=== PATIENT | female | born 1945 | race African-American/Black ===

== ENCOUNTER 2018-06-08 10:00 | Day surgery (SDC) | payer OTHER, BC ==
[2018-06-07 14:59] VITALS: BMI 30.3
--- NOTE | 2018-06-08 09:18 | HP ---
Satellite [facility] - Chief Complaint Chief Complaint: left hand pain/numbness - Past Medical History Allergies/Adverse Reactions: Allergies Allergy/AdvReac Type Severity Reaction Status Date / Time No Known Drug Allergies Allergy Verified 06/07/18 15:02 - Current Medications Current Medications: Home Medications Medication Instructions Recorded Hydrocodone/Acetaminophen 1 each PO Q6H #20 tablet MDD 4 06/08/18 [Hydrocodone-Acetamin 5-325 mg] Satellite Physical Exam - Physical Examination General Appearance: Well Nourished, Well Developed, Alert & Oriented x3 ENT: Clear Lung: Normal air movement Heart: Regular rate & rhythm Extremities: Other (left hand - + phalens, + tinels EMG + CTS) Neurological: Intact, Alert, Oriented Satellite Impression/Plan - Impression/Plan Impression: left cts Operative Procedure: left ctr Date to be Performed: 06/08/18
[2018-06-08] MEDS ORDERED: LIDOCAINE HCL 1%, 10 MG/ML (20ML VIAL) ONE (12:30)
[2018-06-08] MEDS ORDERED: BUPIVACAINE HCL/PF 0.5% (5MG/ML) 10 ML VIAL ONE (12:30)
[2018-06-08] MEDS ORDERED: MIDAZOLAM HCL 2 MG/2 ML SINGLE DOSE VIAL ONE (12:55)
[2018-06-08] MEDS ORDERED: PROPOFOL 20 ML ONE (12:55)
[2018-06-08] MEDS ORDERED: ceFAZolin SODIUM 1 GM VIAL IVPB ONE (13:00)
[2018-06-08] MEDS ORDERED: LIDOCAINE HCL 1%, 10 MG/ML (50 mL VIAL) IJ ONE (13:07)
[2018-06-08] MEDS ORDERED: BUPIVACAINE HCL/PF (5 MG/ML) 30 ML VIAL IJ ONE (13:07)
--- NOTE | 2018-06-08 13:40 | OP ---
Operative Note - Note: Operative Date: 06/08/18 Pre-Operative Diagnosis: left CTS Operation: left CTR Post-Operative Diagnosis: Same as Pre-op Surgeon: Chase Islas Anesthesiologist/COMMUNITY DEVELOPMENT TECHNICIAN: Flora Avina Anesthesia: Local, MAC Specimens Removed: tenosynovium Estimated Blood Loss (mls): 0 Drains, Volume Out (mls): 0 Blood Volume Replaced (mls): 0 Fluid Volume Replaced (mls): 500 Operative Report Dictated: Yes
[2018-06-08] MEDS ORDERED: ONDANSETRON 4 MG/2 ML VIAL IVPUSH PRN (14:24)
[2018-06-08] MEDS ORDERED: oxyCODONE HCL 5 MG TABLET PO PRN (14:24)
[2018-06-08] MEDS ORDERED: LACTATED RINGERS SOLUTION 1,000 ML IV SCH (14:30)
[2018-06-08 14:41] VITALS: BP 107/71; PULSE 67; TEMP 97.8
--- NOTE | 2018-06-09 11:29 | SPEC ---
DATE OF OPERATION: DATE OF DICTATION: 06/08/2018 PREOPERATIVE DIAGNOSIS: Left carpal tunnel syndrome. POSTOPERATIVE DIAGNOSIS: Left carpal tunnel syndrome. OPERATION: Left carpal tunnel release and tenosynovectomy. SURGEON: Chase Islas M.D. ASSISTANTS: None. ANESTHESIOLOGIST: MUNA Avina ANESTHESIA: MAC, local injection with 12 mL of 0.5% Marcaine and 1% Lidocaine mix. DRAINS: None. COMPLICATIONS: None. SPECIMENS: Tenosynovium, left wrist. BLOOD LOSS: None. BLOOD GIVEN: None. FLUID REPLACEMENT: 500 mL of PlasmaLyte. INDICATIONS: This patient is a 73-year-old female with a preoperative diagnosis of left carpal tunnel syndrome. After understanding the potential risks, complications, alternatives and benefits of surgery versus nonsurgical treatment, the patient elected to undergo this procedure. DESCRIPTION OF PROCEDURE: The patient was brought to the operating room, peripheral IV placed and intravenous sedation was given. One gram of intravenous Ancef was given. MAC anesthesia was induced. A tourniquet was applied to the left upper arm and the left upper extremity was prepped and draped in sterile fashion. The entire case was done under 3.8 loupe magnification. A marking pen was utilized to josh out a longitudinal incision in an already existing skin crease. Twenty mL of 0.5% Marcaine mixed with 1% Lidocaine was injected in and around the surgical incision. The left upper extremity was elevated, exsanguinated with an Esmarch bandage and the tourniquet inflated to 250 mmHg. A No. 15 scalpel blade was utilized to cut down through the skin. Subcutaneous hemostasis was achieved with the bipolar cautery. Dissection was done through the superficial palmar fascia. Self-retaining retractors were placed into the wound. Under direct visualization, the transverse carpal ligament was transected with a No. 15 scalpel blade, exposing the median nerve and the contents of the carpal tunnel. The distal and proximal extents of the release were completed with a Littler scissor and checked with irrigation and my small finger. They were seen to be complete. Limited dissection was done on the radial side of the median nerve and more extensive dissection was done on the ulnar side of the median nerve. The patients nerve was seen to be quite compressed by epineurium and therefore a limited epineurotomy was performed. A Ragnell retractor was used to gently retract the median nerve in a radial direction. The patient had a lot of tenosynovitis and therefore a tenosynovectomy was performed off all 9 flexor tendons. This was passed off the field as tenosynovium left wrist. The floor of the carpal tunnel was checked. There were no abnormal masses or ganglion cysts. The area was copiously irrigated and washed out and closure begun. Undyed 4-0 Vicryl was used to close the deep dermal layer. Final skin reapproximation was done with horizontal mattress 4-0 nylon sutures. The area was then washed and dried, covered with Xeroform, 4x4s, fluffs between the fingers, Webril and a 4-inch plaster roll was utilized to make a volar splint, which was then wrapped with Jesús and Coban. The tourniquet was taken down after a total tourniquet time of 16 minutes. There were no complications during the case. The patient tolerated the procedure well and was brought to the ambulatory recovery room in stable condition. Sasha [id number]
--- NOTE | 2018-06-10 17:24 | PATH ---
Surgical Pathology Report Patient Name: PETER ARCHIBALD [facility]. Rec. #: [id number] /Age/Gender: 1945 (Age: 73) / F Account: [id number] Location: [facility] SURGICAL Taken: 06/08/2018 Received: 06/09/2018 Reported: 06/10/2018 Physicians: Chase Islas M.D. Specimen(s) Received WRIST, LEFT, TENOSYNOVIUM Clinical History Carpal tunnel syndrome left Final Diagnosis WRIST, LEFT, TENOSYNOVIUM, CARPAL TUNNEL RELEASE: BENIGN FIBROCONNECTIVE TISSUE. Electronically Signed Lidia Dupont M.D. Gross Description Received in formalin labeled "tenosynovium left wrist," is a 2.0 x 1.6 x 0.3 cm aggregate of menendez-yellow portions of soft tissue, consistent with tenosynovium. The specimen is submitted in toto in one cassette. 06/09/201806/09/2018
== END 2018-06-08 14:45 | disposition home or self-care (01) ==
LOC: JASU-SURG 10:00
PROVIDERS: ATTEND Orthopaedic Surgery
PROC: 0LT60ZZ Resection of Left Lower Arm and Wrist Tendon, Open Approach (ICD-10-PCS; 2018-06-08)
PROC: 01N50ZZ Release Median Nerve, Open Approach (ICD-10-PCS; principal; 2018-06-08 11:30)
DX: G56.02 Carpal tunnel syndrome, left upper limb (principal); M65.9 Synovitis and tenosynovitis, unspecified
CPT/HCPCS: 88304-TC

== ENCOUNTER 2019-04-21 11:06 | Emergency (ER) | payer OTHER, BC ==
[2019-04-21] MEDS ORDERED: ONDANSETRON 4 MG/2 ML VIAL IVPUSH ONE (11:39)
[2019-04-21] MEDS ORDERED: SODIUM CHLORIDE 1,000 ML IV STA (11:39)
--- NOTE | 2019-04-21 11:39 | PDOC ---
History of Present Illness <Dolores Lerner - Last Filed: 04/21/19 12:49> - General History Source: Patient Exam Limitations: No Limitations <Jonna Najera - Last Filed: 04/21/19 14:41> - General Chief Complaint: Weakness Stated Complaint: WEKNESS Time Seen by Provider: 04/21/19 11:20 Past History <Dolores Lerner - Last Filed: 04/21/19 12:49> - Travel Traveled outside of the country in the last 30 days: No Close contact w/someone who was outside of country & ill: No - Past Medical History Anemia: No Asthma: No Cancer: No Cardiac Disorders: No CVA: Yes (CT scan showed mini stroke-pt unaware of same) COPD: No CHF: No Dementia: No Diabetes: No GI Disorders: No Disorders: No HTN: Yes Hypercholesterolemia: No Liver Disease: No Seizures: No Thyroid Disease: No - Surgical History Cholecystectomy: Yes - Psycho Social/Smoking Cessation Hx Smoking History: Never smoked Hx Alcohol Use: No Drug/Substance Use Hx: No Substance Use Type: None Hx Substance Use Treatment: No <Jonna Najera - Last Filed: 04/21/19 14:41> - Past Medical History Allergies/Adverse Reactions: Allergies Allergy/AdvReac Type Severity Reaction Status Date / Time No Known Drug Allergies Allergy Verified 06/07/18 15:02 Home Medications: Ambulatory Orders Alendronate Sodium 70 mg PO WEEKLY 06/08/18 Atacand 32 mg PO DAILY 06/08/18 Hydrocodone/Acetaminophen [Hydrocodone-Acetamin 5-325 mg] 1 - 2 tab PO TID PRN # 25 tablet MDD 6 06/08/18 Labetalol HCl 200 mg PO DAILY 06/08/18 Lipitor 10 mg PO DAILY 06/08/18 Nifedipine 90 mg PO DAILY 06/08/18 Ondansetron [Zofran Odt -] 4 mg SL TID #10 od.tablet 04/21/19 Oseltamivir Phosphate [Tamiflu] 75 mg PO BID #10 capsule 04/21/19 Review of Systems - Review of Systems Able to Perform ROS?: Yes Comments:: 04/21/19 14:35 CONSTITUTIONAL: Present: body aches Absent: Fever, diaphoresis, generalized weakness, malaise, loss of appetite HEENT: Present: rhinorrhea, nasal congestion. Absent: Throat pain, difficulty swallowing, mouth swelling, ear pain, eye pain, visual Changes CARDIOVASCULAR: Present: Lightheaded absent: chest pain, loss of consciousness, palpitations, irregular heart rate, peripheral edema RESPIRATORY: Present: Cough Absent: shortness of breath, dyspnea with exertion, orthopnea, wheezing, stridor, hemoptysis GASTROINTESTINAL: Present: Vomiting Absent: abdominal pain, abdominal distension, nausea, vomiting , diarrhea, constipation, melena, hematochezia SKIN: Absent: rash, itching, pallor NEUROLOGIC: Absent: headache, focal weakness or paresthesias, dizziness, unsteady gait, seizure, mental status changes, bladder or bowel incontinence Is the patient limited Icelandic proficient: No <Jonna Najera - Last Filed: 04/21/19 14:41> *Physical Exam - Vital Signs Last Vital Signs Temp Pulse Resp BP Pulse Ox 98.2 F 65 18 102/68 97 04/21/19 11:15 04/21/19 11:15 04/21/19 11:15 04/21/19 11:15 04/21/19 11:15 <Dolores Lerner - Last Filed: 04/21/19 12:49> - Physical Exam 04/21/19 14:36 GENERAL: Well developed, well nourished. Awake and alert. No acute distress. HEENT: Normocephalic, atraumatic. PERRLA, EOMI. No conjunctival pallor. Sclera are non- icteric. Moist mucous membranes. Oropharynx is clear. NECK: Supple. Full ROM. No lymphadenopathy. CARDIOVASCULAR: Regular rate and rhythm. No murmurs, rubs, or gallops. Distal pulses are 2+ and symmetric. PULMONARY: No evidence of respiratory distress. Lungs clear to auscultation bilaterally. No wheezing, rales or rhonchi. ABDOMINAL: Soft. Non-tender. Non-distended. No rebound or guarding. No organomegaly. Normoactive bowel sounds. MUSCULOSKELETAL Normal range of motion at all joints. No bony deformities or tenderness. No CVA tenderness. EXTREMITIES: No cyanosis. No clubbing. No edema. No calf tenderness. SKIN: Warm and dry. Normal capillary refill. No rashes. No jaundice. NEUROLOGICAL: Alert, awake, appropriate. Cranial nerves 2-12 intact. No deficits to light touch and temperature in face, upper extremities and lower extremities. No motor deficits in the in face, upper extremities and lower extremities. Normoreflexic in the upper and lower extremities. Normal speech. Toes are down- going bilaterally. Gait is normal without ataxia. PSYCHIATRIC: Cooperative. Good eye contact. Appropriate mood and affect. <Jonna Najera - Last Filed: 04/21/19 14:41> ED Treatment Course - LABORATORY CBC & Chemistry Diagram: 04/21/19 11:50 04/21/19 11:50 - ADDITIONAL ORDERS Additional order review: 04/21/19 11:50 RBC 4.21 MCV 95.2 MCHC 33.2 RDW 13.6 MPV 7.8 Neutrophils % 74.2 Lymphocytes % 10.2 Monocytes % 10.5 H Eosinophils % 4.2 Basophils % 0.9 - Medications Given in the ED: ED Medications Discontinued Medications Generic Name Dose Route Start Last Admin Trade Name Freq PRN Reason Stop Dose Admin Sodium Chloride 1,000 mls @ 1,000 mls/hr 04/21/19 11:39 04/21/19 11:55 Normal Saline - IV 04/21/19 12:38 1,000 mls/hr ASDIR STA Administration Ondansetron HCl 4 mg 04/21/19 11:39 04/21/19 12:06 Zofran Injection IVPUSH 04/21/19 11:40 4 mg ONCE ONE Administration <Dolores Lerner - Last Filed: 04/21/19 12:49> - LABORATORY CBC & Chemistry Diagram: 04/21/19 11:50 04/21/19 11:50 <Jonna Najera - Last Filed: 04/21/19 14:41> Medical Decision Making - Medical Decision Making 04/21/19 12:50 The patient was seen and evaluated in conjunction with midlevel provider under my direct supervision, ancillary studies were reviewed. I agree with the plan as outlined with GISSEL Najera. HPI, workup/dispo as outlined. VS reviewed, wnl. flu positive anticipate discharge, pcp followup, return precautions <Dolores Lerner - Last Filed: 04/21/19 12:49> - Medical Decision Making 04/21/19 14:37 Patient is a 73-year-old female past medical history hypertension, presents to the ER today as a rapid response from mammography. She was getting her mammogram when she got lightheaded, dizzy. She states she then threw up. She threw up twice upstairs and then the rapid response was called. 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 Denies fevers, chills, palpitations, chest pain, shortness of breath, difficulty breathing, diarrhea and constipation. She does admit to associated sneezing and nausea. A/P: Lightheadedness Patient exam is unremarkable. Vital signs within normal limits. Basic labs are within normal limits, no leukocytosis. Flu swab is positive for influenza B. A liter of fluids was given with relief of symptoms as well as Zofran. EKG shows normal sinus rhythm with intermittent PVCs, no normal intervals and axis. No acute ST-T wave changes Chest x-ray shows no acute pathology We will discharge home with symptomatic relief and primary care follow-up I discussed the physical exam findings, ancillary test results and final diagnoses with the patient. I answered all of the patient's questions. The patient was satisfied with the care received and felt comfortable with the discharge plan and treatment plan. The Patient agrees to follow up with the primary care physician/specialist within 24-72 hours. Return precautions were given. <Jonna Najera - Last Filed: 04/21/19 14:41> Discharge <EduardaDoloresmartinez Almeida - Last Filed: 04/21/19 12:49> - Discharge Information Problems reviewed: Yes - Admission No <Jonna Najera - Last Filed: 04/21/19 14:41> - Discharge Information Clinical Impression/Diagnosis: Influenza B Condition: Stable Disposition: HOME - Follow up/Referral Referrals: Ya Farooq MD [Primary Care Provider] - - Patient Discharge Instructions Patient Printed Discharge Instructions: DI for Influenza -- Adult Additional Instructions: You have the flu. This is a virus that will get better on its own in approximately 7-10 days. You will most likely have a fever for 7-10 days because of the flu. This is to be expected. Drink plenty of fluids to prevent dehydration and get plenty of rest. Warm tea and cough drops may help your symptoms as well. Take the tamiflu twice a day for 5 days to help reduce the symptoms of the flu. This medication will not cure the flu. Take Motrin as directed for pain and fever. Take all other medications as prescribed. Follow up with your primary care doctor this week Return to the ED for difficulty breathing, shortness of breath, weakness, or if you have any other changes in your symptoms. - Post Discharge Activity
[2019-04-21 11:44] VITALS: TEMP 98.2; BMI 29.0
[2019-04-21] MEDS ORDERED: ONDANSETRON 4 MG/2 ML VIAL ONE (11:57)
[2019-04-21 12:02] LABS: BASO % 0.9 % (0-2.0); EOS % 4.2 % (0-4.5); HEMATOCRIT 40.1 % (32.4-45.2); HEMOGLOBIN 13.3 GM/dL (10.7-15.3); LYMPH % 10.2 % (8-40); MCH 31.6 pg (25.7-33.7); MCHC 33.2 g/dl (32.0-36.0); MEAN CELL VOLUME 95.2 fl (80-96); MEAN PLT VOLUME 7.8 fl (7.5-11.1); MONO % 10.5 % (3.8-10.2); NEUT % 74.2 % (42.8-82.8); PLATELET COUNT 252 K/MM3 (134-434); RBC 4.21 M/mm3 (3.60-5.2); RDW 13.6 % (11.6-15.6); WHITE BLOOD COUNT 7.4 K/mm3 (4.0-10.0)
[2019-04-21 13:11] LABS: ALBUMIN 3.9 g/dl (3.4-5.0); BILIRUBIN,TOTAL 0.6 mg/dL (0.2-1); BLOOD UREA NITROGEN 13.2 mg/dL (7-18); CALCIUM 8.7 mg/dL (8.5-10.1); CREATININE 0.7 mg/dL (0.55-1.3); POTASSIUM 4.3 mmol/L (3.5-5.1); TOT PROT 7.3 g/dl (6.4-8.2)
--- NOTE | 2019-04-21 13:14 | EKG ---
Test Reason : Blood Pressure : / mmHG Vent. Rate : 066 BPM Atrial Rate : 066 BPM P-R Int : 150 ms QRS Dur : 090 ms QT Int : 426 ms P-R-T Axes : 023 044 028 degrees QTc Int : 446 ms SINUS RHYTHM NONSPECIFIC ST ABNORMALITY Confirmed by JAMIL GARCÍA MD ([id number]) on 04/21/2019 1:14:04 PM Referred By: Confirmed By:JAMIL GARCÍA MD
[2019-04-21 14:30] LABS: EPI CELLS 9.9 /HPF (0-5/HPF); HYALINE CASTS 6 /lpf (0-8); URINE APPEARANCE CLEAR; URINE BACTERIA 176.2 /hpf (NEGATIVE); URINE BILIRUBIN NEGATIVE (NEGATIVE); URINE COLOR YELLOW; URINE GLUCOSE (UA) NEGATIVE (NEGATIVE); URINE KETONE NEGATIVE (NEGATIVE); URINE LEUK ESTERASE 2+ (NEGATIVE); URINE NITRITE NEGATIVE (NEGATIVE); URINE PROTEIN TRACE (NEGATIVE); URINE RBC 3 /hpf (0-4); URINE WBC 5 /hpf (0-5)
[2019-04-21 14:56] VITALS: BP 120/78; PULSE 70
== END 2019-04-21 14:57 | disposition home or self-care (01) ==
LOC: JER 11:06
PROC: 3E033GC Introduction of Other Therapeutic Substance into Peripheral Vein, Percutaneous Approach (ICD-10-PCS; principal; 2019-04-21)
DX: J10.1 Influenza due to other identified influenza virus with other respiratory manifestations (principal); I10 Essential (primary) hypertension
CPT/HCPCS: 36415; 71046-TC-FY; 80053; 81003; 85025; 87804; 93005; 93010; 96374; 99283-25; J7030

== ENCOUNTER 2021-12-21 12:01 | Emergency (ER) | payer OTHER, BC ==
[2021-12-21 12:07] VITALS: TEMP 98.4; BMI 28.5
[2021-12-21] MEDS ORDERED: LACTATED RINGERS SOLUTION 1000 ML INFUS.BAG IV ONE (13:41)
[2021-12-21 14:18] LABS: BASO % 0.5 % (0-2.0); EOS % 3.2 % (0-4.5); HEMATOCRIT 41.2 % (32.4-45.2); HEMOGLOBIN 13.9 GM/dL (10.7-15.3); LYMPH % 15.7 % (8-40); MCH 31.2 pg (25.7-33.7); MCHC 33.7 g/dl (32.0-36.0); MEAN CELL VOLUME 92.6 fl (80-96); MEAN PLT VOLUME 7.3 fl (7.5-11.1); MONO % 15.7 % (3.8-10.2); NEUT % 64.9 % (42.8-82.8); PLATELET COUNT 239 10^3/uL (134-434); RBC 4.45 M/mm3 (3.60-5.2); RDW 13.8 % (11.6-15.6); WHITE BLOOD COUNT 3.8 K/mm3 (4.0-10.0)
[2021-12-21 14:34] LABS: ALBUMIN 3.5 g/dl (3.4-5.0)
[2021-12-21 14:37] LABS: CREATININE 0.8 mg/dL (0.55-1.3)
[2021-12-21 14:38] LABS: BILIRUBIN,TOTAL 0.3 mg/dL (0.2-1); TOT PROT 7.3 g/dl (6.4-8.2)
[2021-12-21] MEDS ORDERED: ONDANSETRON *ODT* 4 MG TABLET ONE (15:43)
[2021-12-21] MEDS ORDERED: FAMOTIDINE 20 MG TABLET ONE (15:44)
[2021-12-21 16:06] VITALS: BP 107/73; PULSE 73; RESP 19
== END 2021-12-21 16:14 | disposition home or self-care (01) ==
LOC: JER 12:01
DX: R53.1 Weakness (principal)
CPT/HCPCS: 0241U-QW; 36415; 71046-TC-FY; 80053; 84484; 85025; 93005; 93010; 99284-25